=== PATIENT | female | born 1955 | race Caucasian/White ===

== ENCOUNTER → 2019-06-10 | Outpatient (CLI) | payer BC, OTHER | LOC: CAT 08:20 | DX: Z13.6 Encounter for screening for cardiovascular disorders (principal); K59.09 Other constipation; K42.9 Umbilical hernia without obstruction or gangrene; E78.00 Pure hypercholesterolemia, unspecified; I25.10 Atherosclerotic heart disease of native coronary artery without angina pectoris ==